=== PATIENT | female | born 2000 ===

== ENCOUNTER 2019-07-05 08:33 | Emergency (ER) | payer OTHER ==
[~2019-07-05] VITALS: Ht 157.5 cm; Wt 59.0 kg
[2019-07-05] MEDS ORDERED: PRENA1 TRUE CO1 EACH PO (09:08)
== END 2019-07-05 14:02 | disposition home or self-care (01) ==
LOC: ER 08:33
DX: N73.8 Other specified female pelvic inflammatory diseases (principal)